=== PATIENT | female | born 2000 | race Two or more races ===

== ENCOUNTER 2024-11-29 02:17 | Emergency (ER) | payer OTHER ==
[~2024-11-29] VITALS: Ht 160 cm; Wt 68.0 kg
[2024-11-29] MEDS ORDERED: TETANUS & DIPHTHERIA TOX,ADULT 0.5 ML VIAL IM STA (03:23)
[2024-11-29] MEDS ORDERED: DIPHTH,PERTUSS(ACELL),TET VAC 0.5 ML SYRINGE IM ONE (03:26)
[2024-11-29] MEDS ORDERED: BACITRACIN-NEOMYCIN-POLYMYXIN 0.9 GM PACKET TOP ONE (03:30)
== END 2024-11-29 03:47 | disposition home or self-care (01) ==
LOC: ER 02:18
DX: S00.01XA Abrasion of scalp, initial encounter (principal); X83.8XXA Intentional self-harm by other specified means, initial encounter; Y93.89 Activity, other specified; Y92.89 Other specified places as the place of occurrence of the external cause; Y99.8 Other external cause status; Z88.0 Allergy status to penicillin
CPT/HCPCS: 90471; 90714; 96372; J1670